=== PATIENT | male | born 1955 | race Caucasian/White ===

== ENCOUNTER 2016-12-11 15:38 | Observation (INO) | payer OTHER ==
[~2016-12-11] VITALS: Ht 182.9 cm; Wt 115.3 kg
[2016-12-11 16:12] LABS: HEMATOCRIT 45.2 % (38.0-50.0); MCH 29.2 PG (29.0-34.0); MCHC 33.4 G/DL (30.0-36.0); MCV 87.3 FL (86-99); MEAN PLAT.VOLUME 10.1 uM^3 (9.0-12.4); PLATELET COUNT 230 K/uL (156-360); RBC DIS.WIDTH-CV 12.5 % (11.8-14.6); RBC DIS.WIDTH-SD 39.8 % (39-53); RED BLOOD COUNT 5.18 M/uL (4.00-5.50); WHITE BLOOD COUNT 7.7 K/uL (4.1-10.2)
[2016-12-11 16:23] LABS: CHLORIDE 105 mEq/L (99-109); POTASSIUM 3.9 mEq/L (3.7-5.4); SODIUM 139 mEq/L (136-147)
[2016-12-11 16:25] LABS: GLUCOSE 98 mg/dL (70-99)
[2016-12-11 16:26] LABS: ANION GAP 9 MEQ/L (2-14)
[2016-12-11 16:29] LABS: GFR ESTIMATE (CALCULATED) > 59 mL/min/; UREA NITROGEN (BUN) 15 mg/dL (9-23)
[2016-12-11 16:32] LABS: TROP-I INTERPRETATION NEGATIVE; TROPONIN-I < 0.01 ng/mL (0.0-0.30)
[2016-12-11] MEDS ORDERED: ROSUVASTATIN CA40 MG PO (17:29)
[2016-12-11 19:32] LABS: D-DIMER ELISA 0.22 mg/L FEU (< 0.57)
[2016-12-11 20:37] VITALS: BP 156/78
[2016-12-11 22:19] LABS: TROP-I INTERPRETATION NEGATIVE; TROPONIN-I < 0.01 ng/mL (0.0-0.30)
[2016-12-12 02:25] LABS: TROP-I INTERPRETATION NEGATIVE; TROPONIN-I < 0.01 ng/mL (0.0-0.30)
[2016-12-12 03:15] VITALS: BP 130/78
[2016-12-12 03:30] LABS: HDL CHOLESTEROL 33 MG/DL (Desirable>=40); LDL CHOLESTEROL 61 mg/dL (Desirable<100); NON-HDL CHOLESTEROL 83 mg/dL (Desirable<160); TOTAL CHOLESTEROL 116 mg/dL (Desirable<200); TRIGLYCERIDES 112 MG/DL (Normal: <150)
[2016-12-12 08:10] VITALS: BP 132/80
[2016-12-12] MEDS ORDERED: ASPIRIN81 M2 PO (09:46)
== END 2016-12-12 10:53 | disposition home or self-care (01) ==
LOC: EME 15:38 → EDOF 19:11 → 5WEST 19:11
PROVIDERS: Physician Assistant; Physician Assistant Medical
DX: R07.89 Other chest pain (principal); R55 Syncope and collapse; E78.5 Hyperlipidemia, unspecified; Z82.49 Family history of ischemic heart disease and other diseases of the circulatory system; E66.9 Obesity, unspecified; Z68.35 Body mass index [BMI] 35.0-35.9, adult; R94.31 Abnormal electrocardiogram [ECG] [EKG]
CPT/HCPCS: 71020; 80048; 80061; 84484; 85027; 85379; 93005; 99281; 99284; G0378